=== PATIENT | female | born 1995 | race Caucasian/White ===

== ENCOUNTER 2024-02-04 02:00 | Emergency (ER) | payer SELFPAY ==
[2024-02-04] MEDS ORDERED: SODIUM CHLORIDE 0.9% 1,000 ML IV ONE (02:10)
[2024-02-04] MEDS ORDERED: Ondansetron Hydrochloride 4 MG/2 ML VIAL IV ONE (02:15)
[2024-02-04 02:27] LABS: BASO # 0.1 10*3/uL (0.0-0.1); BASO % 0.9 % (0.0-1.0); EOS % 0.3 % (1.0-4.0); HEMATOCRIT 40.1 % (37.0-47.0); LYMPH % 31.4 % (27.0-41.0); MEAN CELL VOLUME 83.9 fl (81.0-99.0); MEAN CORPUSCULAR HGB 28.5 pg (27.0-31.0); MEAN CORPUSCULAR HGB CONC 33.9 g/dl (33.0-37.0); MEAN PLATELET VOLUME 10.7 fl (9.6-12.3); MONO # 0.5 10*3/uL (0.1-1.0); MONO % 7.4 % (3.0-9.0); NEUT # 3.8 10*3/uL (2.3-7.9); NEUT % 59.4 % (47.0-73.0); PLATELET COUNT AUTOMATED 288 10*3/uL (130-400); RED BLOOD COUNT 4.78 10*6/uL (4.10-5.10); RED CELL DISTRI WIDTH 12.9 % (0-14.5); WHITE BLOOD COUNT 6.4 10*3/uL (4.8-10.8)
[2024-02-04 02:53] LABS: BUN 9 mg/dl (9-23); CHLORIDE 103 mmol/L (98-107); ETHYL ALCOHOL 205.8 mg/dl (<3); POTASSIUM 3.6 mmol/L (3.4-5.1)
[2024-02-04 02:54] LABS: BETA-HCG, QUANT < 3.0 mIU/mL (3-10)
[2024-02-04] MEDS ORDERED: INSULIN REGULAR, HUMAN 1 UNIT/0.01 ML IV ONE (02:55)
[2024-02-04] MEDS ORDERED: POTASSIUM CHLORIDE 20 MEQ TAB PO ONE (03:00)
[2024-02-04 05:23] LABS: BUN 6 mg/dl (9-23); CHLORIDE 108 mmol/L (98-107)
[2024-02-04 05:25] LABS: POTASSIUM 4.9 mmol/L (3.4-5.1)
[2024-02-04] MEDS ORDERED: BD ULTRA-FINE1 EAC3 SC (05:31)
== END 2024-02-04 05:48 | disposition home or self-care (01) ==
LOC: ED 02:00
PROVIDERS: Internal Medicine
DX: E11.65 Type 2 diabetes mellitus with hyperglycemia (principal); F10.129 Alcohol abuse with intoxication, unspecified; R11.2 Nausea with vomiting, unspecified; Y90.7 Blood alcohol level of 200-239 mg/100 ml